=== PATIENT | female | born 1970 | race Caucasian/White ===

== ENCOUNTER 2018-08-26 21:08 | Emergency (ER) | payer OTHER ==
[~2018-08-26] VITALS: Ht 152.4 cm; Wt 61.2 kg
[~2018-08-26 21:08] MED LIST: LIPITOR20 MG; TRAM1TAB98 PO; TRICOR145 MG; ZANTAC150 MG
[2018-08-26] MEDS ORDERED: CRESTOR20 MG (21:42)
[2018-08-27] MEDS ORDERED: DOLOGESIC 500-1 EACH PO (03:41)
== END 2018-08-27 04:04 | disposition home or self-care (01) ==
LOC: ER 21:08
DX: N83.291 Other ovarian cyst, right side (principal)